=== PATIENT | male | born 1945 | race Caucasian/White ===

== ENCOUNTER 2018-04-06 14:14 | Inpatient (IN) | payer MEDICARE, OTHER ==
[~2018-04-06] VITALS: Ht 185.4 cm; Wt 72.2 kg
[2018-04-06 15:05] LABS: BASOPHILS # (AUTO) 0.03 x10^3/uL (0-0.1); BASOPHILS % (AUTO) 1 % (0-1); EOSINOPHILS % (AUTO) 2 % (1-7); LYMPHOCYTES # (AUTO) 1.55 x10^3/uL (1-3.4); LYMPHOCYTES % (AUTO) 30 % (22-44); MD NO; MEAN CORPUSCULAR HEMOGLOBIN 32.7 pg (27.5-34.5); MEAN CORPUSCULAR HGB CONC 35.4 g/dL (33.2-36.2); MEAN CORPUSCULAR VOLUME 92.3 fL (81-97); MEAN PLATELET VOLUME 8.2 fL (7.4-10.4); MONOCYTES # (AUTO) 0.49 x10^3/uL (0.2-0.8); MONOCYTES % (AUTO) 10 % (2-9); NEUTROPHILS # (AUTO) 3.01 x10^3/uL (1.8-6.8); NEUTROPHILS % (AUTO) 58 % (42-75); PLATELET COUNT 245 x10^3/uL (130-400); RED BLOOD COUNT 3.82 x10^6/uL (4.38-5.82); RED CELL DISTRIBUTION WIDTH 15.4 % (9.4-14.8)
[2018-04-06 15:16] LABS: MICROSCOPIC AUTO
[2018-04-06 15:17] LABS: CULTURE INDICATED? NO
[2018-04-06 15:47] LABS: ALBUMIN 3.2 g/dL (3.4-5.0); ANION GAP 9 mmol/L (5-15); CALCIUM 9.2 mg/dL (8.5-10.1); CHLORIDE 105 mmol/L (98-107)
[2018-04-06 15:50] LABS: ALANINE AMINOTRANSFERASE 27 U/L (12-78); ALKALINE PHOSPHATASE 78 U/L (45-117); BILIRUBIN,TOTAL 0.5 mg/dL (0.2-1.0); CREATININE 1.02 mg/dL (0.7-1.3); TOTAL PROTEIN 10.4 g/dL (6.4-8.2)
[2018-04-06] MEDS ORDERED: ONDANSETRON 2MG/ML, 2ML IVPush ONE (16:00)
[2018-04-06] MEDS ORDERED: SODIUM CHLORIDE FLUSH 10ML SYR IVF ONE (16:00)
[2018-04-06] MEDS ORDERED: SODIUM CHLORIDE 0.9% 1,000ML IVBOLUS ONE (16:00)
[2018-04-06] MEDS ORDERED: MORPHINE SULFATE 4 MG/ML, 1ML IVPush PRN (16:00)
[2018-04-06] MEDS ORDERED: LOVA40TA2 PO (16:05)
[2018-04-06] MEDS ORDERED: ASPI-498 PO (16:05)
[2018-04-06] MEDS ORDERED: OMEP20TA9 PO (16:05)
[2018-04-06 16:22] LABS: TROPONIN I < 0.015 ng/mL (0.000-0.045)
[2018-04-06] MEDS ORDERED: OMNIPAQUE 350 MG/ML, 100ML BOTTLE ONE (16:46)
[2018-04-06] MEDS ORDERED: ONDANSETRON 2MG/ML, 2ML ONE (16:50)
[2018-04-06] MEDS ORDERED: MORPHINE SULFATE 4 MG/ML, 1ML ONE (16:51)
[2018-04-06] MEDS ORDERED: POLYETHYLENE GLYCOL 17 GM PACKET PO PRN (18:00)
[2018-04-06] MEDS ORDERED: ONDANSETRON 2MG/ML, 2ML IVPush PRN (18:00)
[2018-04-06] MEDS ORDERED: ENALAPRILAT 1.25 MG/ML, 2ML IVPush PRN (18:00)
[2018-04-06] MEDS ORDERED: BISACODYL 10 MG SUPP PR PRN (18:00)
[2018-04-06] MEDS ORDERED: DOCUSATE 100 MG CAPSULE PO PRN (18:00)
[2018-04-06] MEDS ORDERED: ACETAMINOPHEN 325 MG TABLET PO PRN (18:00)
[2018-04-06 18:41] LABS: INTERNATIONAL NORMALIZED RATIO 1.13 (0.93-1.1); PROTHROMBIN TIME 11.9 Seconds (9.6-11.5)
[2018-04-06 19:15] VITALS: BP 116/68
[2018-04-06 19:30] VITALS: BP 116/68
[2018-04-06] MEDS: NS + 20MEQ KCL 1,000 ML IV SCH (20:18)
[2018-04-06] MEDS: LOVASTATIN 40 MG TABLET PO SCH (21:00)
[2018-04-06] MEDS: morphine SULFATE 10 MG/ML, 1ML IVPush PRN (21:20)
[2018-04-07 02:21] VITALS: BP 99/57
[2018-04-07] MEDS: morphine SULFATE 10 MG/ML, 1ML IVPush PRN ×5 (05:29→22:23)
[2018-04-07 05:57] LABS: BASOPHILS # (AUTO) 0.02 x10^3/uL (0-0.1); BASOPHILS % (AUTO) 1 % (0-1); EOSINOPHILS # (AUTO) 0.12 x10^3/uL (0-0.4); EOSINOPHILS % (AUTO) 3 % (1-7); LYMPHOCYTES # (AUTO) 1.36 x10^3/uL (1-3.4); LYMPHOCYTES % (AUTO) 30 % (22-44); MD NO; MEAN CORPUSCULAR HEMOGLOBIN 33.6 pg (27.5-34.5); MEAN CORPUSCULAR HGB CONC 36.4 g/dL (33.2-36.2); MEAN CORPUSCULAR VOLUME 92.5 fL (81-97); MEAN PLATELET VOLUME 8.6 fL (7.4-10.4); MONOCYTES # (AUTO) 0.57 x10^3/uL (0.2-0.8); MONOCYTES % (AUTO) 13 % (2-9); NEUTROPHILS # (AUTO) 2.49 x10^3/uL (1.8-6.8); NEUTROPHILS % (AUTO) 54 % (42-75); PLATELET COUNT 199 x10^3/uL (130-400); RED BLOOD COUNT 3.42 x10^6/uL (4.38-5.82); RED CELL DISTRIBUTION WIDTH 15.2 % (9.4-14.8)
[2018-04-07 06:09] LABS: ANION GAP 8 mmol/L (5-15); CALCIUM 8.6 mg/dL (8.5-10.1); CHLORIDE 109 mmol/L (98-107); CREATININE 0.87 mg/dL (0.7-1.3)
[2018-04-07 06:54] VITALS: BP 101/57
[2018-04-07] MEDS: NS + 20MEQ KCL 1,000 ML IV SCH ×2 (09:35→22:22)
[2018-04-07] MEDS ORDERED: LIDOCAINE-MPF 1%, 5ML ONE (10:11)
[2018-04-07] MEDS ORDERED: FLUMAZENIL 0.1 MG/1 ML, 5ML ONE (10:19)
[2018-04-07] MEDS ORDERED: FENTANYL PF 100 MCG/2ML ONE (10:19)
[2018-04-07] MEDS ORDERED: NALOXONE 1 MG/ML, 2ML ONE (10:19)
[2018-04-07] MEDS ORDERED: MIDAZOLAM 1 MG/ML, 5ML ONE (10:19)
[2018-04-07] MEDS ORDERED: OMNIPAQUE 350 MG/ML, 75ML BOTTLE ONE (10:52)
[2018-04-07 12:17] VITALS: BP 110/57
[2018-04-07 20:13] VITALS: BP 112/62
[2018-04-07] MEDS: LOVASTATIN 40 MG TABLET PO SCH (22:23)
[2018-04-08 02:39] VITALS: BP 111/58
[2018-04-08] MEDS: morphine SULFATE 10 MG/ML, 1ML IVPush PRN ×3 (06:46→18:08)
[2018-04-08 07:01] VITALS: BP 101/52
[2018-04-08] MEDS ORDERED: DIPHENHYDRAMINE 25 MG CAPSULE PO PRN (10:00)
[2018-04-08 12:05] VITALS: BP 134/73
[2018-04-08] MEDS: NS + 20MEQ KCL 1,000 ML IV SCH (13:21)
[2018-04-08 19:30] VITALS: BP 135/66
[2018-04-08] MEDS: LOVASTATIN 40 MG TABLET PO SCH (20:50)
[2018-04-09] MEDS: NS + 20MEQ KCL 1,000 ML IV SCH (01:23)
[2018-04-09 04:45] VITALS: BP 109/58
[2018-04-09] MEDS: morphine SULFATE 10 MG/ML, 1ML IVPush PRN ×2 (04:53→10:19)
[2018-04-09 07:20] VITALS: BP 112/63
[2018-04-09] MEDS ORDERED: ACET325T14 PO (09:40)
[2018-04-09] MEDS ORDERED: ONDA4TAB7 PO (09:40)
[2018-04-09] MEDS ORDERED: DIPH25CA61 PO (09:40)
[2018-04-09] MEDS ORDERED: HYDR-3240 PO (13:15)
== END 2018-04-09 13:25 | disposition home or self-care (01) | DRG 840 ==
LOC: EDSEX 14:14 → ED 17:53 → EDIP 17:54 → ED 18:12 → 3NE 19:21 → DCLOUNGE 04-09 13:12
PROVIDERS: ADMIT Hospitalist; ATTEND Hospitalist
PROC: 0WBH3ZX Excision of Retroperitoneum, Percutaneous Approach, Diagnostic (ICD-10-PCS; principal; 2018-04-07)
DX: C83.03 Small cell B-cell lymphoma, intra-abdominal lymph nodes (principal); E43 Unspecified severe protein-calorie malnutrition; D64.9 Anemia, unspecified; E78.5 Hyperlipidemia, unspecified; I25.10 Atherosclerotic heart disease of native coronary artery without angina pectoris; F17.200 Nicotine dependence, unspecified, uncomplicated; K21.9 Gastro-esophageal reflux disease without esophagitis; Z95.5 Presence of coronary angioplasty implant and graft; Z83.3 Family history of diabetes mellitus; Z82.49 Family history of ischemic heart disease and other diseases of the circulatory system; Z80.1 Family history of malignant neoplasm of trachea, bronchus and lung; Z68.21 Body mass index [BMI] 21.0-21.9, adult; I25.2 Old myocardial infarction
CPT/HCPCS: 36415; 49180; 71260; 74177; 77012; 80048; 80053; 81001; 82378; 83690; 84484; 85025; 85610; 86301; 86677; 88184; 88185; 88305; 88341; 88342; 93005; 96374; 99156; 99157; 99285; G0378; J2250; J2405; J3010; J3480; Q9967; J2270; J2310; J7030

== ENCOUNTER → 2018-04-23 | Outpatient (CLI) | payer MEDICARE, OTHER ==
[~2018-04-23] MED LIST: ACET325T14 PO; ASPI-498 PO; DIPH25CA61 PO; HYDR-3240 PO; LOVA40TA2 PO; OMEP20TA9 PO; ONDA4TAB7 PO
== END | disposition home or self-care (01) ==
LOC: STAR 13:31
PROVIDERS: ATTEND Surgery
DX: Z01.818 Encounter for other preprocedural examination (principal)
CPT/HCPCS: 93005